=== PATIENT | male | born 1945 | race Caucasian/White ===

== ENCOUNTER 2016-11-22 06:56 | Inpatient (IN) | payer MEDICARE ==
--- NOTE | 2016-11-14 16:17 | HP ---
HISTORY AND PHYSICAL: DATE OF ADMISSION/SURGERY: 11/22/16 PROCEDURE: Right total hip arthroplasty. CHIEF COMPLAINT: Right hip pain. HISTORY OF PRESENT ILLNESS: Mr. Torres is a 71-year-old gentleman with complaints of right hip pain. He has failed conservative management and has elected to proceed with the right total hip arthroplasty. The surgery is scheduled for 11/22/[address] Cespedes. PAST MEDICAL HISTORY: Acute OH, high cholesterol, hypothyroidism, depression, coronary artery disease, GERD, low back pain, BPH and stroke. PAST SURGICAL HISTORY: Cornea transplant, left total hip arthroplasty, bilateral knee arthroscopies, left shoulder rotator cuff repair, lumbar diskectomy, deviated septum surgery and tonsillectomy. CURRENT MEDICATIONS: 1. Nature-Throid. 2. Plavix. 3. Zantac. 4. Atorvastatin. 5. Calcium. 6. Ramipril. 7. Fish oil. 8. Paxil. 9. Aspirin. 10. Calcium and vitamin D. 11. CoQ10. 12. Osteo Bi-Flex. 13. Paroxetine. 14. Prednisone. 15. . ALLERGIES: PERCOCET, CIPRO, LOPRESSOR and HYDROCODONE. FAMILY HISTORY: Diabetes and heart disease. SOCIAL HISTORY: This is a 71-year-old gentleman who lives with his , he is retired. He denies use of drugs. He drinks 1 to 2 alcoholic beverages a day. He does not smoke. REVIEW OF SYSTEMS: A complete 14-point review of systems was reviewed with the patient, is positive for hypothyroidism and a history of stroke. PHYSICAL EXAMINATION GENERAL: He is well developed, well nourished, he is in no acute distress. VITAL SIGNS: He stands 6 feet tall, weighs 225 pounds. His blood pressure is 166/94, heart rate is 60. HEENT: Normocephalic, atraumatic. NECK: Supple. No palpable lymph nodes. Trachea is midline. PULMONARY: His lungs are clear to auscultation bilaterally. No wheezes, rhonchi, or rales. CARDIO: Regular rate and rhythm. Strong S1 and S2. No murmurs, gallops, or rubs. No peripheral edema. ABDOMEN: Soft, nontender, nondistended. MUSCULOSKELETAL: Right lower extremity skin is intact. He had limited range of motion with internal and external rotation of the right hip, 2+ dorsalis pedis pulses. His lower extremity muscle group strengths are intact to 5/5. He has intact sensation. NEUROLOGICAL: He is alert and oriented x3. Cranial nerves II through XII are intact. ASSESSMENT AND PLAN: Mr. Torres is a 71-year-old gentleman with complaints of right hip pain secondary to advanced osteoarthritis. He has failed conservative management and has elected to proceed with a right total hip arthroplasty, which is scheduled for 11/22/[address] Cespedes discussed the risks and benefits of the surgery at today's visit and all of his questions were answered. His corporate bond trader has instructed him to stop taking Plavix 1 week before the surgery and his last dose will be tonight. He will follow up with Dr. Cespedes 10 to 14 days after the surgery. SHERRY FLANAGAN [id number]/[facility] #: [id number] HARRY
[~2016-11-22 06:56] MED LIST: Buffered Lidocaine 1% SYRIN* 3 ML/SYR SYRINGE INTRADERM ONE; Famotidine IV* 10 MG/ML 2 ML (20 mg) IV ONE
[2016-11-22] MEDS ORDERED: ceFAZolin 2 GM PREMIX(*) 2 GM/50 ML BAG IVPB ONE (07:02)
[2016-11-22] MEDS ORDERED: Famotidine IV* 10 MG/ML 2 ML (20 mg) ONE (07:02)
[2016-11-22] MEDS ORDERED: fentaNYL* 50 MCG/ML 2 ML VIAL (100 MCG VIAL) ONE (07:53)
[2016-11-22] MEDS ORDERED: KETAMINE HCL* 50 MG/ML 10 ML VIAL ONE (07:53)
[2016-11-22] MEDS ORDERED: Morphine PF AMP (0.5MG/ML)* 5 MG/10 ML AMP ONE (07:53)
[2016-11-22] MEDS ORDERED: Midazolam* 1 MG/ML 5 ML VIAL (5 MG) ONE (07:53)
[2016-11-22] MEDS ORDERED: Dexamethasone IV* 4 MG/ML 1 ML (4 MG) ONE (07:56)
[2016-11-22] MEDS ORDERED: diPHENhydraMINE IV* 50 MG/ML 1 ml VIAL (BENADRYL) ONE (07:56)
[2016-11-22] MEDS ORDERED: Ketorolac INJ* 30 MG/ML 1 ML VIAL ONE (07:56)
[2016-11-22] MEDS ORDERED: Lidocaine 2% PF* 5 ML VIAL ONE (07:56)
[2016-11-22] MEDS ORDERED: Propofol* 10 MG/ML 20 ML BTL IV PUSH ONE (07:56)
[2016-11-22] MEDS ORDERED: Ondansetron INJ* 2 MG/ML VIAL ONE (07:56)
[2016-11-22] MEDS ORDERED: Acetaminophen TAB* 325 MG PO PRN (09:39)
[2016-11-22] MEDS ORDERED: Nalbuphine* 20 MG/ML 1 ML VIAL IV PRN ×2 (09:39→09:44)
[2016-11-22] MEDS ORDERED: HYDROmorphone* 1 MG/ML 1 ML SYR IV PRN (09:39)
[2016-11-22] MEDS ORDERED: HYDROcodone/ACETAMIN 5-325 MG* 1 TAB PO PRN ×2 (09:39→09:44)
[2016-11-22] MEDS ORDERED: DiMENhydriNATE IV* 50 MG/ML VIAL IV PUSH PRN (09:39)
[2016-11-22] MEDS ORDERED: Gabapentin CAP(*) 300 MG PO ONE (09:42)
[2016-11-22] MEDS ORDERED: Ondansetron INJ* 2 MG/ML VIAL IV PRN (09:44)
[2016-11-22] MEDS ORDERED: Naloxone* 0.4 MG/ML 1 ML VIAL IV PRN (09:44)
[2016-11-22] MEDS ORDERED: Ibuprofen TAB* 600 MG PO SCH (10:00)
[2016-11-22] MEDS ORDERED: LACTULOSE* 30 ML UDC PO PRN (10:10)
[2016-11-22] MEDS ORDERED: Polyethylene Glycol 3350* 17 GM PACKET PO PRN (10:10)
[2016-11-22] MEDS ORDERED: Magnesium Hydroxide LIQ* 30 ML UDC PO PRN (10:10)
[2016-11-22] MEDS ORDERED: Phenylephrine IV* 40 MCG/ML 10 ML SYRINGE ONE (10:13)
[2016-11-22] MEDS ORDERED: Phenylephrine INJ* 10 MG/ML 1 ML VIAL (10 MG) ONE (10:13)
[2016-11-22] MEDS ORDERED: Famotidine TAB* 20 MG PO PRN (10:15)
[2016-11-22] MEDS ORDERED: Gabapentin CAP(*) 300 MG ONE (11:11)
[2016-11-22] MEDS ORDERED: Nalbuphine* 20 MG/ML 1 ML VIAL ONE (12:19)
--- NOTE | 2016-11-22 12:26 | RAD ---
INDICATION: Right hip pain. Total hip replacement. COMPARISON: Bilateral hips November 02, 2016 TECHNIQUE: An AP view of the pelvis and AP views of the hip in neutral and abducted position were obtained FINDINGS: Bones: There is interval right hip arthroplasty. Both femoral and acetabular components appear well seated. The existing left hip prosthesis appears normal on the AP view. Joint spaces: Bilateral hip arthroplasty. SI joints/symphysis: The symphysis and visualized portions of the SI joints are normal. Other: None IMPRESSION: RIGHT HIP ARTHROPLASTY. NO EVIDENCE OF HARDWARE FAILURE.
--- NOTE | 2016-11-22 12:30 | RAD ---
INDICATION: Right hip replacement surgery, intraoperative guidance. TECHNIQUE: An AP portable view of the pelvis was obtained in the operating room. FINDINGS: The patient is status post remote total left hip replacement surgery. The patient is in the process of the total right hip replacement surgery. The acetabular prosthesis is in place. There is a femoral template also in place. Air is noted in the adjacent soft tissues consistent with the patient's surgery. IMPRESSION: INTRAOPERATIVE CONTROL FILMS.
--- NOTE | 2016-11-22 15:13 | CONS ---
CONSULTATION REPORT: DATE OF CONSULT: 11/22/16 ATTENDING PHYSICIAN: Jennifer Cespedes MD CONSULTING PHYSICIAN: Becca Dior MD (dictation provided by Jackelyn Son NP) . REASON FOR CONSULTATION: Medical comanagement in a patient admitted for right hip replacement. HISTORY OF PRESENT ILLNESS: Mr. Torres is a 71-year-old male with past medical history of coronary artery disease with stent placement x1, on Plavix therapy, as well as hypothyroidism and BPH, who presents to the hospital today with plan for an elective right total hip replacement. Please see the dictated H and P from Dr. Cespedes for complete details. In brief, the patient had failed conservative treatment for right hip pain and therefore, opted for a right total hip replacement. The patient has a history of similar complaint and left total hip replacement in 2014, which he states went very well. Other than his complaint of ongoing hip pain, Mr. Torres states he has been having issues with his thyroid levels and changes to his thyroid medication. He reports that a few months ago, his thyroid medication was changed to Bradner Thyroid to Nature- Throid due to insurance coverage. He states that with this, he had symptoms of aching in his joints and tiredness, as well as increasing right hip pain. He checked in with his primary care physician and his TSH, though normal, was from his perspective elevated at 4.59. He states that his symptoms are much better controlled and his thyroid level is between 1.5 and 2. After consulting with physician, he felt that he would be better served by adjusting the thyroid medication himself and is now currently taking Nature-Throid 130 alternating with 160 mg every other day. His thyroid stimulating hormone level was down to 2.9 and he is very interested in having it rechecked as it has been about a week since he has made this adjustment to his medications. Other than this, he denies any complaint. He has had no chest pain, no cough, no shortness of breath. No nausea, vomiting, diarrhea, abdominal pain. He was evaluated preoperatively by Dr. Carroll with stress test and echocardiogram, which are normal and he was also seen by Dr. Etienne. PAST MEDICAL HISTORY: 1. Coronary artery disease with [place] in 2006 with stent placement x1. 2. Hyperlipidemia. 3. Hypothyroidism. 4. GERD. 5. History of BPH. 6. 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 7. History of stroke. OUTPATIENT MEDICATIONS: 1. Aspirin 81 mg p.o. daily. 2. Calcium carbonate with vitamin D 1 tablet p.o. daily. 3. Clopidogrel 75 mg p.o. daily, held 5 days prior to surgery. 4. Coenzyme Q10 200 mg p.o. daily. 5. Docusate 1 cap p.o. b.i.d. 6. Dromizol to left eye daily. 7. Krill oil 1 cap p.o. daily. 8. Osteo Bi-Flex 1.5 tabs p.o. daily. 9. [place]khorn 5/325 mg 1 tab p.o. as needed. 10. Prednisolone 0.12% ophthalmic suspension 1 drop to left eye daily. 11. Atorvastatin 40 mg p.o. daily. 12. Paroxetine 1 tab p.o. daily 20 mg. 13. Ramipril 2.5 mg daily. 14. Ranitidine 150 mg p.o. b.i.d. 15. Nature-Throid 130 mg alternating with 160 mg. ALLERGIES: SINEMET, CIPROFLOXACIN, HYDROCODONE, METOPROLOL, and OXYCODONE. FAMILY HISTORY: The patient reports his father had coronary artery disease with heart attack at 55 but lived to age 85. His brother had multiple heart attacks with CABG and in his 50s. Mother had COPD and in her 70s. SOCIAL HISTORY: No report of smoking or drug use. The patient drinks 1 to 2 alcoholic beverages a day. No report of history of alcohol withdrawal symptoms. REVIEW OF SYSTEMS: A 14-point review of systems was completed with Mr. Torres and all that mentioned above were negative. PHYSICAL EXAMINATION: Vital Signs: Temperature 97.5, heart rate 70, respiratory rate 16, O2 saturation 98% on room air, blood pressure 118/72. General: Mr. Torres is sitting up in the bed, he is in no acute distress. He is calm and cooperative with my examination. Neuro: He is alert and oriented x3. Moves all extremities equally. There is no facial asymmetry or focal weakness. Extraocular movements are intact. Heart: S1, S2. No murmur, rub, gallop, and regular. Lungs are clear to auscultation bilaterally with no accessory muscle use and good aeration. Abdomen: Soft, nontender with bowel sounds positive x4. Extremities: No cyanosis or edema. Skin: Right hip incision not assessed as it is postop day zero. DIAGNOSTIC STUDIES/LAB DATA: On 11/14/16, WBC is 7.4, hemoglobin 16.0, hematocrit 47, platelet count 217. Sodium 138, potassium 4.1, chloride 104, serum bicarbonate 27, BUN 26, creatinine 1.10, glucose 85. TSH 2.92. ASSESSMENT: Mr. Torres is a 71-year-old male with past medical history of coronary artery disease with myocardial infarction, hypothyroidism, and arthritis, who presents today to the hospital for elective right hip replacement. Our recommendations are as follows: 1. Postop day #0, status post right hip replacement. Management will be per Orthopedics. The patient will have pain medications p.r.n. with the bowel regimen. We will monitor his H and H intermittently. He will have physical and occupational therapy. 2. Hypothyroidism. The patient feels that his thyroid symptoms are best controlled when his TSH is between 1.5 and 2. On last check it was 2.92. I have ordered the Nature-Throid hormone per his routine dose and we will check TSH in the a.m. 3. Coronary artery disease. The patient to hold Plavix 5 days prior to surgery. From my perspective, he would be okay to resume Plavix tomorrow but this will have to be cleared per Orthopedics. He will also continue on his home aspirin if they are in agreement with that. 4. Hyperlipidemia. Continue atorvastatin. 5. Depression. Continue Paxil. 6. Hypertension. Continue ramipril. 7. 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 Continue home eye drops. 8. DVT prophylaxis with Lovenox per Ortho. 9. Code status is full code. TIME SPENT: Approximately 60 minutes was spent in the consultation of this patient, more than half the time was spent with the patient at the bedside, reviewing the events leading up to this hospitalization, performing the physical examination, and reviewing my plan [place] [id number]/[facility] #: [id number] HARRY
[2016-11-22] MEDS: OXYMORPHONE 10 MG PO SCH (15:21)
[2016-11-22] MEDS: Ibuprofen TAB* 600 MG PO SCH ×2 (17:03→23:05)
[2016-11-22] MEDS: ceFAZolin 1 GM in Dextrose (*) 1 GM/50 ML BAG IVPB SCH (17:03)
[2016-11-22] MEDS: PTO: Latanoprost 0.005%* 2.5 ml BTL LEFT EYE SCH ×2 (20:29→20:50)
[2016-11-22] MEDS: Docusate CAP* 100 MG PO SCH (20:29)
[2016-11-23] MEDS: ceFAZolin 1 GM in Dextrose (*) 1 GM/50 ML BAG IVPB SCH ×2 (00:46→08:37)
[2016-11-23] MEDS ORDERED: HYDROcodone/ACETAMIN 5-325 MG* 1 TAB PO PRN (01:44)
[2016-11-23] MEDS ORDERED: Morphine INJ* 2 MG/ML 1 ML SYRINGE IV PRN (01:44)
[2016-11-23] MEDS ORDERED: Ondansetron TAB* 4 MG PO PRN (01:44)
[2016-11-23] MEDS ORDERED: Acetaminophen TAB* 325 MG PO PRN (01:44)
[2016-11-23] MEDS ORDERED: Ondansetron INJ* 2 MG/ML VIAL IV PRN (01:44)
[2016-11-23] MEDS: OXYMORPHONE 10 MG PO SCH ×2 (02:49→20:19)
--- NOTE | 2016-11-23 02:51 | OP ---
DATE OF OPERATION: 11/22/16 - ROOM #343 DATE OF : 47 ATTENDING SURGEON: Jennifer Cespedes MD GRAPHIC DESIGN INTERN: SHERRY Carlisle ANESTHESIOLOGIST: Dr. Horton. ANESTHESIA: Spinal. PRE-OP DIAGNOSIS: Severe end-stage degenerative osteoarthritis of the right hip joint. POST-OP DIAGNOSIS: Severe end-stage degenerative osteoarthritis of the right hip joint. OPERATIVE PROCEDURE: Right total hip arthroplasty. BRIEF HISTORY/INDICATIONS: Mr. Torres is a 71-year-old gentleman with increasingly severe right hip pain over the last few years. The pain became quite severe despite anti-inflammatories, pain medication, physical therapy and ambulatory assistive devices. The pain became severe and made it difficult for him to ambulate. Radiographs confirmed bacn-tt-daem contact and advanced degeneration of the right hip joint. He elected to undergo right total hip arthroplasty due to continued pain and decreased quality of life. Informed consent was obtained from the patient. He understood the risks of the procedure included, but were not limited to bleeding, infection, damage to nearby structures, continued pain, need for further surgery, intraoperative fracture, nerve palsy, hardware failure or loosening, dislocation, leg length discrepancy, stroke, heart attack, blood clot, and . He wished to proceed. COMPLICATIONS: None. ESTIMATED BLOOD LOSS: 400 cc. SPECIMEN: Femoral head and acetabular reaming sent to pathology. HARDWARE USED: This is Mark uncemented total hip hardware. For the acetabular cup, a Tritanium hemispherical cluster hole shell 58F. 125-mm cancellous bone screw was used for extra stabilization. The liner was an MDM cement-less liner, 46F. For the stem, an Accolade TMZF size 5 with a 127- degree neck, a Biolox delta ceramic V40 femoral head 28, -2.7 with a 28/52/46F X3 MDM church insert. INTRAOPERATIVE FINDINGS: Intraoperatively, the patient was noted to have severe end-stage arthritis of the hip joint. There was complete loss of the cartilage in the acetabulum and femoral head, significant osteophyte formation. DESCRIPTION OF PROCEDURE: Mr. Torres was identified in the preanesthesia unit. His right lower extremity was marked as the correct operative side. Informed consent was signed and placed in the chart. The patient was taken to the operating room and placed under spinal anesthesia. A Loco catheter was placed. He was placed in the right lateral decubitus position on the peg board. All bony prominences were well padded. Right lower extremity was prepped and draped in the usual sterile fashion. Preop time-out was made to correctly identify the patient's side and site. Appropriate perioperative antibiotics were given within 1 hour of incision. A standard 15-cm posterior hip incision was made with a skin knife and carried down to the lateral fascial layer. Lateral fascial layer was incised in line with the skin incision. A Charnley retractor was placed. Piriformis and conjoint tendons were identified. These were elevated off the posterolateral femur using electrocautery and tagged with two #5 Ethibonds. Next, a posterolateral capsular flap was made with electrocautery and also tagged with two #5 Ethibonds. The hip was carefully dislocated. Lesser troch to center of the femoral head measured 55 mm. Oscillating saw was used to make the standard femoral neck cut. The femur was removed and sent to pathology. The femur was carefully retracted anteriorly. After appropriate placement of retractors, the acetabulum was easily visualized. Long-handled knife was used to remove any remaining labrum from the acetabular rim. The acetabulum was sequentially reamed up to a size 57. A good bleeding bone bed was obtained. 57 trial had excellent fit and stability. A Tritanium hemispherical cluster hole shell 58F was chosen and impacted into the acetabulum. A 125 mm screw was placed in the superior posterior fossa for extra stability. Next, a MDM liner cementless 46F was impacted into the acetabulum. Attention was next turned to preparation of the femoral canal. The femoral canal was entered using a canal finder. The canal was sequentially broached up to size 5. Size 5 had excellent anteversion and stability. A 127-degree neck trial was chosen as well as a 28 +0 head and a 28/52/46F inter trial. The hip was reduced and taken through a range of motion. The hip was stable in all positions. The hip was carefully dislocated. At this point, all trials were carefully removed. Final implant chosen was an Accolade TMZF, size 5 with a 127-degree neck. This was impacted into the femoral canal without difficulty. Stability of the stem was excellent. A +0 and a -2.7 head trial were placed and measured. The -2.7 was chosen as the correct length based on lesser troch to center of the femoral head measurements. A Biolox delta ceramic with 40 femoral head 28 -2.7 and a 28 /52/46F church MDM X3 insert was chosen. This was impacted on to the femoral neck without difficulty. The hip was reduced and taken through a range of motion. The hip was stable in all positions. Previously tagged capsule and tendons were reapproximated to the posterolateral femur using 2 trochanteric drill holes. The hip was copiously irrigated with sterile saline. The lateral fascial layer was reapproximated using interrupted #1 Vicryls. The rest of the incision was closed in a layered fashion using 0 and 2-0 Vicryls. The skin was closed using running 3-0 Monocryl and Dermabond. Sterile Adaptic, 4x4s, and paper tape were used to cover the incision. The patient's anesthesia was reversed without difficulty. He was taken to the PACU in stable condition. Intended weightbearing will be weightbearing as tolerated with posterior hip precautions. Intended DVT prophylaxis will be Coumadin with a Lovenox bridge. [id number]/[facility] #: [id number] HARRY
[2016-11-23] MEDS: Ibuprofen TAB* 600 MG PO SCH (04:31)
[2016-11-23] MEDS: HYDROcodone/ACETAMIN 5-325 MG* 1 TAB PO PRN ×3 (04:36→23:33)
[2016-11-23] MEDS: diPHENhydraMINE IV* 50 MG/ML 1 ml VIAL (BENADRYL) IV PRN ×2 (04:37→15:16)
[2016-11-23 06:12] LABS: Hematocrit 35 % (42-52); Hemoglobin 12.2 g/dl (14.0-18.0)
[2016-11-23 06:32] LABS: BUN/Creatinine Ratio 17.1 (8-20); Calcium 8.7 mg/dL (8.6-10.3); EGFR African American 84.2 (>60); EGFR Non-African American 65.5 (>60); Potassium 3.9 mmol/L (3.5-5.0)
[2016-11-23 06:55] LABS: TSH (Thyroid Stimulating Horm) 0.97 mcIU/mL (0.34-5.60)
--- NOTE | 2016-11-23 07:34 | PN ---
Progress Note - Progress Note SOAP: Subjective: Pt. reports pain is well controlled. Objective: RLE - dressing c/d/i. +df/pf, full sens lt, 2+ dp pulse. Vital Signs: Temp Pulse Resp BP Pulse Ox 97.7 F 69 16 102/57 98 11/23/16 04:28 11/23/16 04:28 11/23/16 06:36 11/23/16 04:28 11/23/16 04:28 Laboratory Results - last 24 hr 11/23/16 11/23/16 11/23/16 05:46 05:46 05:46 Hgb 12.2 L Hct 35 L INR (Anticoag Therapy) 1.01 Sodium 136 Potassium 3.9 Chloride 105 Carbon Dioxide 27 Anion Gap 4 BUN 19 Creatinine 1.11 Est GFR ( Amer) 84.2 Est GFR (Non-Af Amer) 65.5 BUN/Creatinine Ratio 17.1 Glucose 109 H Calcium 8.7 TSH 0.97 Assessment: 71 yo M pod 1 s/p RTHA Plan: wbat RLE with post hip precautions pt/ot 10 mg coumadin tonight with lovenox bridge plan d/c to home 4 AM
[2016-11-23] MEDS: Enoxaparin(*) 30 MG/0.3 ML SYR SUBCUT SCH (08:37)
[2016-11-23] MEDS: Atorvastatin* 80 MG TAB PO SCH (08:37)
[2016-11-23] MEDS: Docusate CAP* 100 MG PO SCH ×2 (08:38→20:18)
[2016-11-23] MEDS: PTO: Dorzolamide/Timolol OPTH (NF) 10 ML BOT LEFT EYE SCH ×2 (08:38→16:22)
[2016-11-23] MEDS: Ramipril CAP* 2.5 MG PO SCH (08:38)
[2016-11-23] MEDS: PARoxetine HCL TAB* 20 MG PO SCH (08:38)
[2016-11-23] MEDS: PREDNISOLONE 1% LEFT EYE SCH (08:48)
[2016-11-23] MEDS ORDERED: THYROID PO SCH (09:00)
[2016-11-23] MEDS ORDERED: NATURE THROID PO SCH (09:00)
[2016-11-23] MEDS ORDERED: Warfarin TAB(*) 10 MG PO ONE (17:00)
[2016-11-23] MEDS: PTO: Latanoprost 0.005%* 2.5 ml BTL LEFT EYE SCH (20:18)
--- NOTE | 2016-11-23 20:53 | PN ---
Subjective Date of Service: 11/23/16 Interval History: Mr. Torres states that he is feeling well today. He has some hip pain but it is not severe. He denies chest pain, SOB, nausea, or abdominal pain. Objective Active Medications: Acetaminophen (Tylenol Tab*) 650 mg PO Q4H PRN Hydrocodone Bitart/Acetaminophen (Pierson 5-325 Tab*) 1 tab PO Q4H PRN Hydrocodone Bitart/Acetaminophen (Pierson 5-325 Tab*) 2 tab PO Q4H PRN Atorvastatin Calcium (Lipitor*) 40 mg PO DAILY RAFAT Diphenhydramine HCl (Benadryl Iv*) 12.5 mg IV Q6H PRN Docusate Sodium (Colace Cap*) 100 mg PO BID RAFAT Dorzolamide/Timolol (Cosopt (Nf)) 1 drop LEFT EYE 0900,1600 RAFAT Enoxaparin Sodium (Lovenox(*)) 30 mg SUBCUT Q24H RAFAT Famotidine (Pepcid Tab*) 20 mg PO BID PRN; Protocol Lactated Ringer's (Lactated Ringers 1000 Ml Bag*) 1,000 mls @ 100 mls/hr IV PER RATE RAFAT Lactulose (Lactulose*) 30 ml PO Q6H PRN Latanoprost (Xalatan 0.005%*) 1 drop LEFT EYE BEDTIME RAFAT Magnesium Hydroxide (Milk Of Magnesia Liq*) 30 ml PO Q6H PRN Morphine Sulfate (Morphine Inj (Syringe)*) 2 mg IV Q2H PRN Pto: Nature-Throid (130mg Tablet) 1 admin PO EVERY OTHER DAY RAFAT Pto: Nature-Throid (130mg Tablets) 1.25 dose PO EVERY OTHER DAY RAFAT Ondansetron HCl (Zofran Inj*) 4 mg IV Q6H PRN Ondansetron HCl (Zofran Tab*) 4 mg PO Q6H PRN Oxymorphone HCl (Opana Er (Nf)) 10 mg PO BID RAFAT Paroxetine HCl (Paxil Tab*) 20 mg PO DAILY [facility] Pharmacy Profile Note (Coumadin Daily Reminder*) 1 note FOLLOW UP 1700 ARFAT Polyethylene Glycol/Electrolytes (Miralax*) 17 gm PO DAILY PRN Prednisolone Acetate (Pred Forte 1%*) 1 drop LEFT EYE QAM RAFAT Ramipril (Altace Cap*) 2.5 mg PO DAILY [facility] Vital Signs 11/22/16 11/22/16 11/23/16 20:41 23:31 00:00 Temperature Pulse Rate Respiratory 16 16 Rate Blood Pressure (mmHg) O2 Sat by Pulse 96 Oximetry 11/23/16 11/23/16 11/23/16 00:03 00:31 01:31 Temperature 98.1 F Pulse Rate 69 Respiratory 18 18 18 Rate Blood Pressure 111/62 (mmHg) O2 Sat by Pulse 96 Oximetry 11/23/16 11/23/16 11/23/16 04:28 04:36 04:37 Temperature 97.7 F Pulse Rate 69 Respiratory 18 18 18 Rate Blood Pressure 102/57 (mmHg) O2 Sat by Pulse 98 Oximetry 11/23/16 11/23/16 11/23/16 05:37 06:36 07:33 Temperature 97.4 F Pulse Rate 64 Respiratory 16 16 16 Rate Blood Pressure 113/71 (mmHg) O2 Sat by Pulse 98 Oximetry 11/23/16 11/23/16 11/23/16 08:00 11:48 15:16 Temperature 98.1 F Pulse Rate 68 Respiratory 16 16 18 Rate Blood Pressure 103/61 (mmHg) O2 Sat by Pulse 98 97 Oximetry 11/23/16 11/23/16 11/23/16 15:18 16:00 16:16 Temperature 98.2 F Pulse Rate 73 Respiratory 16 20 Rate Blood Pressure 103/55 (mmHg) O2 Sat by Pulse 100 100 Oximetry 11/23/16 11/23/16 11/23/16 17:16 20:17 20:19 Temperature 98.0 F Pulse Rate 77 Respiratory 18 18 16 Rate Blood Pressure 109/61 (mmHg) O2 Sat by Pulse 99 Oximetry 11/23/16 20:31 Temperature Pulse Rate Respiratory 16 Rate Blood Pressure (mmHg) O2 Sat by Pulse Oximetry Oxygen Devices in Use Now: None Appearance: Male sitting up in chair in NAD Respiratory: Symmetrical Chest Expansion and Respiratory Effort, Clear to Auscultation Cardiovascular: NL Sounds; No Murmurs; No JVD, No Edema Abdominal: NL Sounds; No Tenderness; No Distention Extremities: No Edema Skin: No Rash or Ulcers Neurological: Alert and Oriented x 3, NL Muscle Strength and Tone Nutrition: Taking PO's Result Diagrams: 11/23/16 05:46 11/23/16 05:46 Assess/Plan/Problems-Billing Assessment: Mr. Torres is a 71 yo male with a PMH of hypothyroidism and hypertension who was admitted for a right total hip replacement. - Patient Problems (1) Status post total replacement of hip Comment: Management per ortho. Pain meds prn, bowel regimen. PT/OT. Monitor H/ H. (2) Hypertension Comment: Continue ramipril. (3) Hypothyroidism Comment: TSH 0.97 today, patient states that he is best controlled 1.5 - 2. Plan to give naturthyroid 1 tab po alternating with 1 1/4 tab every third day. (4) DVT prophylaxis Comment: Continue warfarin and lovenox per ortho. Status and Disposition: Inpatient. Disposition per ortho.
[2016-11-24] MEDS: diPHENhydraMINE IV* 50 MG/ML 1 ml VIAL (BENADRYL) IV PRN ×2 (00:23→06:08)
[2016-11-24] MEDS: HYDROcodone/ACETAMIN 5-325 MG* 1 TAB PO PRN ×2 (05:29→11:22)
[2016-11-24 06:33] LABS: Hematocrit 34 % (42-52); Hemoglobin 12.1 g/dl (14.0-18.0)
[2016-11-24] MEDS ORDERED: THYROID PO SCH (09:00)
[2016-11-24] MEDS ORDERED: NATURE THROID PO SCH (09:00)
[2016-11-24] MEDS: Enoxaparin(*) 30 MG/0.3 ML SYR SUBCUT SCH (09:09)
[2016-11-24] MEDS: Atorvastatin* 80 MG TAB PO SCH (09:10)
[2016-11-24] MEDS: PARoxetine HCL TAB* 20 MG PO SCH (09:10)
[2016-11-24] MEDS: OXYMORPHONE 10 MG PO SCH (09:10)
[2016-11-24] MEDS: Docusate CAP* 100 MG PO SCH (09:10)
[2016-11-24] MEDS: Ramipril CAP* 2.5 MG PO SCH (09:10)
[2016-11-24] MEDS: PTO: Dorzolamide/Timolol OPTH (NF) 10 ML BOT LEFT EYE SCH (09:11)
[2016-11-24] MEDS: PREDNISOLONE 1% LEFT EYE SCH (09:13)
--- NOTE | 2016-11-24 11:21 | PN ---
Progress Note - Progress Note SOAP: Subjective: Pt was seen today sitting in chair. Pt reports that pain is well controlled. Pt states that he is ready to go home. States that he is doing well with PT. Objective: RLE - dressing changed today, incision is clean and dry, good approximation of wound. Pt is able to drosiflex and planter flex and the ankle. He has full sensation to light touch down his leg and a 2+ dp and pt pluse. Vital Signs Temp 98.2 F 11/24/16 07:13 Pulse 67 11/24/16 09:05 Resp 20 11/24/16 09:10 BP 103/56 11/24/16 09:05 Pulse Ox 97 11/24/16 08:00 Intake & Output 11/23/16 11/24/16 11/24/16 18:59 06:59 18:59 Intake Total 780 1660 Output Total 550 2000 Balance 230 -340 Intake: Oral 780 1660 Output: Urine 550 2000 Other: Estimated Void Medium # Voids 1 Assessment: pod 2 s/p RTHA Plan: Pt will be discharged home today continue wbat RLE with posterior hip precautions Continue pt at home Pt will have dose of lovenox today Will be discharged on Aspirin 325mg for DVT prophylaxis Pt has Opana pain medication at home
[2016-11-24 13:01] VITALS: BP 103/59
[2016-11-25] MEDS ORDERED: NATURE THROID PO SCH (06:00)
--- NOTE | 2016-11-26 08:07 | DS ---
DISCHARGE SUMMARY: DATE OF ADMISSION: 11/22/16 DATE OF DISCHARGE: 11/24/16 PROVIDER: Dr. Jennifer Cespedes. ADMITTING DIAGNOSIS: Right total hip arthroplasty. CONSULTATIONS: PT/OT and Hospitalist Medicine. HISTORY OF PRESENT ILLNESS: A 71-year-old gentleman who complains of right hip pain. He failed con servative management and has elected to proceed with a right total hip arthroplasty. HOSPITAL COURSE: The patient was admitted to [facility] on 11/22/16 and underwent a righ t total hip arthroplasty with no complications. The patient recovered briefly in the postop anesthe fausto care unit and was then transferred to the short-stay surgical unit in stable condition. On post op day #1, the patient's H and H was 12.2 and 35. INR was 1.01. Dressing was clean, dry, and intac t. Right lower extremity was neurovascularly intact. He could demonstrate dorsiflexion and plantar flexion with good strength. The patient was able to get off the bed with physical therapy. Pain wa s controlled with hydrocodone/acetaminophen 5/325. On postop day #2, the patient's urinary catheter was discontinued and the patient was able to void without difficulty. H and H was found to be 12.1 and 34. INR was 1.15 after a 10 mg dose of Coumadin the night before. Pain was controlled with hy drocodone/acetaminophen 5/325 again. The patient was able to ambulate with use of a rolling walker and with assistance. The patient's pain was well controlled and was felt to be stable for discharge . Throughout the hospital course, the vital signs remained stable. The patient was afebrile. DISCHARGE CONDITION: Good. DISCHARGE MEDICATIONS: DVT prophylaxis with aspirin 325 b.i.d. Pain control with oxymorphone 15 mg . Home medications to resume: 1. Nature-Throid. 2. Plavix. 3. Zantac. 4. Atorvastatin. 5. Calcium. 6. Ramipril. 7. Fish oil. 8. Calcium and vitamin D. 9. Osteo Bi-Flex. 10. Paroxetine. DISCHARGE INSTRUCTIONS: For pain or swelling, use ice over the area for 20 minutes at a time 3 time s a day or as needed. Utilize Opana as prescribed for pain relief. For DVT prophylaxis, aspirin 325 one tab twice a day. Hold Plavix. Hold aspirin 81. Do not take C oumadin. Continue weightbearing as tolerated. Continue with physical therapy. Continue with hip precautions. Keep the wound clean and dry until postop visit. Note that some drainage may persist for up to 2 we eks after surgery. Sutures will be removed 10 to 14 days at postop visit. Call office if you should develop: 1. Temperature over 101.5. 2. Large amount of bleeding from dressing or incision. 3. Significantly increased redness, pain, numbness, or swelling. 4. Thick yellow or foul-smelling drainage from the incision. Go to the ER should you experience chest pain or trouble breathing. SHERRY CANELA [id number]/[facility] #: [id number]
== END 2016-11-24 13:00 | disposition home health service (06) | DRG 470 ==
LOC: AA 06:56 → SSU 12:05
PROVIDERS: ADMIT Orthopaedic Surgery Adult Reconstructive Orthopaedic Surgery; ATTEND Orthopaedic Surgery Adult Reconstructive Orthopaedic Surgery
PROC: 0SR903A Replacement of Right Hip Joint with Ceramic Synthetic Substitute, Uncemented, Open Approach (ICD-10-PCS; principal; 2016-11-22 08:00)
DX: M16.11 Unilateral primary osteoarthritis, right hip (principal); Z96.642 Presence of left artificial hip joint; I10 Essential (primary) hypertension; E78.00 Pure hypercholesterolemia, unspecified; E03.9 Hypothyroidism, unspecified; F32.9 Major depressive disorder, single episode, unspecified; I25.10 Atherosclerotic heart disease of native coronary artery without angina pectoris; K21.9 Gastro-esophageal reflux disease without esophagitis; M25.751 Osteophyte, right hip; N40.0 Benign prostatic hyperplasia without lower urinary tract symptoms; E78.5 Hyperlipidemia, unspecified; Z86.73 Personal history of transient ischemic attack (TIA), and cerebral infarction without residual deficits; Z94.7 Corneal transplant status; Z88.5 Allergy status to narcotic agent; Z88.6 Allergy status to analgesic agent; Z88.8 Allergy status to other drugs, medicaments and biological substances; Z88.1 Allergy status to other antibiotic agents; Z82.49 Family history of ischemic heart disease and other diseases of the circulatory system; Z83.3 Family history of diabetes mellitus; Z72.89 Other problems related to lifestyle; I25.2 Old myocardial infarction; Z95.5 Presence of coronary angioplasty implant and graft; Z79.02 Long term (current) use of antithrombotics/antiplatelets; Z79.82 Long term (current) use of aspirin
CPT/HCPCS: 36415; 72170; 80048; 84443; 85014; 85018; 85610; 88304; 88311; 94760; A9270-GY; C1713; C1776; J0690; J1100; J1200; J1650; J1885; J2250; J2300; J2405; J2704; J3010